=== PATIENT | male | born 1990 | race Caucasian/White ===

== ENCOUNTER 2017-07-10 14:22 | Emergency (ER) | payer BC ==
[~2017-07-10] VITALS: Ht 177.8 cm; Wt 81.6 kg
[~2017-07-10 14:22] MED LIST: PROVENTIL HFA6.7 G1 INH; SINGULAIR10 MG ORAL; ZYRTEC10 MG ORAL
[2017-07-10 14:27] VITALS: BP 136/88
[2017-07-10] MEDS ORDERED: Sodium Chloride 500ML 500 ML IV ONE (15:06)
[2017-07-10 16:00] VITALS: BP 143/80
[2017-07-10 16:17] LABS: BASOPHILS % (AUTO) 0.9 % (0.0-2.0); EOSINOPHILS % (AUTO) 0.8 % (0.0-3.0); HEMATOCRIT 49.2 % (42.0-52.0); HEMOGLOBIN 17.8 G/DL (14.2-18.0); LYMPHOCYTES % (AUTO) 20.2 % (20.0-45.0); MEAN CORPUSCULAR VOLUME 85 FL (80-99); MONOCYTES % (AUTO) 8.2 % (1.0-10.0); NEUTROPHILS % (AUTO) 69.8 % (45.0-75.0); PLATELET COUNT 314 K/UL (150-450); RED CELL DISTRIBUTION WIDTH 11.1 % (11.6-14.8); WHITE BLOOD COUNT 10.2 K/UL (4.8-10.8)
[2017-07-10 16:20] LABS: ANION GAP 12 mmol/L (5-15); BLOOD UREA NITROGEN 10 mg/dL (7-18); CALCIUM 9.8 MG/DL (8.5-10.1); CARBON DIOXIDE 26 MMOL/L (21-32); CHLORIDE 101 MMOL/L (98-107); CREATININE 1.2 MG/DL (0.55-1.30); POTASSIUM 3.7 MMOL/L (3.5-5.1); SODIUM 138 MMOL/L (136-145)
[2017-07-10 16:36] LABS: ALANINE AMINOTRANSFERASE 38 U/L (12-78); ALBUMIN 4.7 G/DL (3.4-5.0); ALBUMIN/GLOBULIN RATIO 1.2 (1.0-2.7); ALKALINE PHOSPHATASE 56 U/L (46-116); ASPARTATE AMINO TRANSFERASE 19 U/L (15-37); BILIRUBIN,TOTAL 1.2 MG/DL (0.2-1.0)
--- NOTE | 2017-07-10 16:36 | Diagnostic Imaging Report ---
EXAM: US Soft Tissues Head and Neck, Thyroid CLINICAL HISTORY: SWELL TECHNIQUE: Real-time ultrasound scan of the thyroid gland and soft tissues of the neck with image documentation. COMPARISON: No relevant prior studies available. FINDINGS: Left thyroid lobe: No Left lobe measures 2.9 x 1.1 x 1.8 cm. No enlarged or calcified nodules. Right thyroid lobe: Right lobe measures 3.7 x 1.2 x 2.1 cm. No enlarged or calcified nodules. Isthmus: The isthmus measures 3 mm. No enlarged or calcified nodules. Lymph nodes: Bilateral cervical nodes. IMPRESSION: 1. No thyroid lesions. 2. Bilateral cervical nodes.
[2017-07-10 16:50] LABS: BILIRUBIN,DIRECT 0.3 MG/DL (0.0-0.3)
[2017-07-10 17:15] VITALS: BP 143/80
--- NOTE | 2017-07-10 17:53 | Emergency Room Report ---
History of Present Illness General Chief Complaint: General Complaint Source: Patient Present Illness HPI 27-year-old male presents ED for evaluation. Patient states her last several days he's felt swelling in his "thyroid". States is difficult to swallow. She does have anxiety and states that he's been prescribed Xanax for it. Patient states there is a family history of hypothyroidism. States she is also feeling weak with poor appetite. Denies any suicidal or homicidal ideation. Denies hearing voices. Denies feeling depressed. Denies fevers or chills. Denies nausea or vomiting. No other aggravating relieving factors. Denies any other associated symptoms Allergies: Coded Allergies: Cultivated Oat Pollen (Unverified Allergy, Intermediate, watery eyes, tight chest, 01/01/14) TOMATO (Unverified Adverse Reaction, Intermediate, upset stomach, 01/01/14 ) Patient History Past Medical History: asthma Past Surgical History: none Pertinent Family History: none Social History: Denies: smoking, alcohol use, drug use Immunizations: UTD Reviewed Nursing Documentation: PMH: Agreed; PSxH: Agreed Nursing Documentation-PMH Past Medical History: No History, Except For Hx Cardiac Problems: No - HYPERLIPIDEMIA Hx Asthma: Yes Hx Cancer: No Hx Gastrointestinal Problems: No Hx Neurological Problems: No Review of Systems All Other Systems: negative except mentioned in HPI Physical Exam Vital Signs Date Time Temp Pulse Resp B/P (MAP) Pulse Ox O2 Delivery O2 Flow Rate FiO2 07/10/17 14:27 98.0 77 16 136/88 98 Room Air 98.1 Sp02 EP Interpretation: reviewed, normal General Appearance: no apparent distress, alert, GCS 15, non-toxic Head: normocephalic, atraumatic Eyes: bilateral eye normal inspection, bilateral eye PERRL ENT: hearing grossly normal, normal pharynx, no angioedema, normal voice Neck: full range of motion, thyroid normal, supple/symm/no masses Respiratory: chest non-tender, lungs clear, normal breath sounds, speaking full sentences Cardiovascular #1: regular rate, rhythm, no edema Cardiovascular #2: 2+ carotid (R), 2+ carotid (L), 2+ radial (R), 2+ radial (L) , 2+ dorsalis pedis (R), 2+ dorsalis pedis (L) Gastrointestinal: normal bowel sounds, non tender, soft, non-distended, no guarding, no rebound Rectal: deferred Genitourinary: normal inspection, no CVA tenderness Musculoskeletal: back normal, gait/station normal, normal range of motion, non- tender Neurologic: alert, oriented x3, responsive, motor strength/tone normal, sensory intact, speech normal Psychiatric: judgement/insight normal, memory normal, mood/affect normal, no suicidal/homicidal ideation Reflexes: 3+ bicep (R), 3+ bicep (L), 3+ tricep (R), 3+ tricep (L), 3+ knee (R) , 3+ knee (L) Skin: normal color, no rash, warm/dry, well hydrated Lymphatic: no adenopathy Medical Decision Making Diagnostic Impression: Primary Impression: Poor appetite Additional Impression: Lymphadenopathy ER Course Hospital Course 27-year-old male presents to ED complaining of enlarged thyroid, difficulty swallowing, weakness, poor appetite Differential diagnosis includes- hypothyroidism, thyroid mass, dehydration, anxiety Clinical course Patient placed on stretcher. After initial history and physical I ordered labs , IV fluids, thyroid US Labs - no leukocytosis, electrolytes ok, TSH normal thyroid US - thyroid normal, bilateral cervical nodes Discussed findings with the patient. Given normal thyroid ultrasound, normal TSH, no signs of airway compromise on exam I believe patient can be safely discharged to home. Vital stable. electrolytes okay. given copies of labs, US results I feel this is a highly complex case requiring extensive working including EKG/ Rhythm strip, Xray/CT/US, Blood/urine lab work, repeat exams while in ED, and administration of strong opiates/narcotics for pain control, admission to hospital or close patient follow up. Diagnosis - poor appetite, lymphadenopathy Stable and discharged to home. Followup with PMD. Return to ED if symptoms recur or worsen Labs Test 07/10/17 15:53 White Blood Count 10.2 K/UL (4.8-10.8) Red Blood Count 5.80 M/UL (4.70-6.10) Hemoglobin 17.8 G/DL (14.2-18.0) Hematocrit 49.2 % (42.0-52.0) Mean Corpuscular Volume 85 FL (80-99) Mean Corpuscular Hemoglobin 30.7 PG (27.0-31.0) Mean Corpuscular Hemoglobin Concent 36.1 G/DL (32.0-36.0) Red Cell Distribution Width 11.1 % (11.6-14.8) Platelet Count 314 K/UL (150-450) Mean Platelet Volume 8.1 FL (6.5-10.1) Neutrophils (%) (Auto) 69.8 % (45.0-75.0) Lymphocytes (%) (Auto) 20.2 % (20.0-45.0) Monocytes (%) (Auto) 8.2 % (1.0-10.0) Eosinophils (%) (Auto) 0.8 % (0.0-3.0) Basophils (%) (Auto) 0.9 % (0.0-2.0) Sodium Level 138 MMOL/L (136-145) Potassium Level 3.7 MMOL/L (3.5-5.1) Chloride Level 101 MMOL/L (98-107) Carbon Dioxide Level 26 MMOL/L (21-32) Anion Gap 12 mmol/L (5-15) Blood Urea Nitrogen 10 mg/dL (7-18) Creatinine 1.2 MG/DL (0.55-1.30) Estimat Glomerular Filtration Rate > 60 mL/min (>60) Glucose Level 106 MG/DL (74-106) Calcium Level 9.8 MG/DL (8.5-10.1) Total Bilirubin 1.2 MG/DL (0.2-1.0) Direct Bilirubin 0.3 MG/DL (0.0-0.3) Aspartate Amino Transf (AST/SGOT) 19 U/L (15-37) Alanine Aminotransferase (ALT/SGPT) 38 U/L (12-78) Alkaline Phosphatase 56 U/L (46-116) Total Protein 8.5 G/DL (6.4-8.2) Albumin 4.7 G/DL (3.4-5.0) Globulin 3.8 g/dL Albumin/Globulin Ratio 1.2 (1.0-2.7) Thyroid Stimulating Hormone (TSH) 2.359 uiU/mL (0.358-3.740) Free Thyroxine 1.32 NG/DL (0.76-1.46) Free Triiodothyronine 3.4 pg/mL (2.3-4.2) CT/MRI/US Diagnostic Results CT/MRI/US Diagnostic Results : Imaging Test Ordered: Thyroid US Impression normal thyroid, bilateral cervical nodes Last Vital Signs Date Time Temp Pulse Resp B/P (MAP) Pulse Ox O2 Delivery O2 Flow Rate FiO2 07/10/17 17:15 98.0 87 17 143/80 100 Room Air 98.0 Status: improved Disposition: HOME, SELF-CARE Condition: Stable Patient Instructions: Hypothyroidism Noel Rico MD Jul 10, 2017 17:53
== END 2017-07-10 17:16 | disposition home or self-care (01) ==
LOC: EMR 15:13
DX: R59.0 Localized enlarged lymph nodes (principal); R63.0 Anorexia; Z68.25 Body mass index [BMI] 25.0-25.9, adult
CPT/HCPCS: 36415; 76536; 80053; 82248; 84439; 84443; 84481; 85025; 96374; 96375; 99284